=== PATIENT | female | born 1945 | race Caucasian/White ===

== ENCOUNTER 2016-11-18 14:34 | Emergency (ER) | payer MEDICARE, OTHER | END 2016-11-18 15:45 | disposition home or self-care (01) | LOC: FER 14:34 | DX: H70.001 Acute mastoiditis without complications, right ear (principal); H70.11 Chronic mastoiditis, right ear; H60.92 Unspecified otitis externa, left ear; R21 Rash and other nonspecific skin eruption; I10 Essential (primary) hypertension; K21.9 Gastro-esophageal reflux disease without esophagitis; J44.9 Chronic obstructive pulmonary disease, unspecified; Z98.890 Other specified postprocedural states | CPT/HCPCS: 99283 ==